=== PATIENT | male | born 1975 | race Caucasian/White ===

== ENCOUNTER 2018-12-08 07:45 | Emergency (ER) | payer BC ==
[2018-12-08 08:17] LABS: INR 0.94 (0.82-1.09)
[2018-12-08 08:20] LABS: ABS Basophils 0.1 10^3/ul (0-0.2); ABS Eosinophils 0.1 10^3/ul (0-0.6); ABS Lymphocytes 1.3 10^3/ul (1.0-4.8); ABS Monocytes 0.7 10^3/ul (0-0.8); ABS Neutrophils 6.7 10^3/ul (1.5-7.7); Eosinophil % 1.4 %; Hematocrit 41 % (42-52); Hemoglobin 14.2 g/dL (14.0-18.0); Lymphocyte % 14.1 %; Mean Corpuscular HGB Conc 34 g/dL (31-36); Mean Corpuscular Hemoglobin 29 pg (27-31); Mean Corpuscular Volume 85 fL (80-94); Mean Platelet Volume 6.6 fL (7.4-10.4); Platelet Count 308 10^3/uL (150-450); Red Blood Count 4.86 10^6 /uL (4.18-5.48); Red Cell Distribution Width 14 % (10-15); White Blood Count 8.9 10^3/uL (3.5-10.8)
--- NOTE | 2018-12-08 08:26 | ED ---
HPI Chest Pain - HPI Summary HPI Summary: Pt is a 43 y/o M presenting to the ED with a chief complaint of chest pain initially onset about 1 hour [employer] located in the lower sternal/epigastric region. He woke up with nausea around 0300, went on a hike at 0400 and after about 4 miles, he experienced chest pain. He began to dry heave and burp, which temporarily alleviated the pain, but he reports associated SOB. He denies PMHx, and states he felt fine going to sleep last night. - History of Current Complaint Chief Complaint: EDChestPainROMI Time Seen by Provider: 12/08/18 08:02 Hx Obtained From: Patient Onset/Duration: Started Hours Ago, Still Present Timing: Constant, Lasting Hours Initial Severity: Moderate Current Severity: Mild Pain Intensity: 3 Pain Scale Used: 0-10 Numeric Chest Pain Location: Lower Sternal Chest Pain Radiates: No Aggravating Factor(s): Nothing Alleviating Factor(s): Other: - dry heaving/burping Associated Signs and Symptoms: Positive: Chest Pain, Shortness of Breath, Nausea , Vomiting - dry heaving/burping - Allergy/Home Medications Allergies/Adverse Reactions: Allergies Allergy/AdvReac Type Severity Reaction Status Date / Time No Known Allergies Allergy Verified 12/08/18 07:52 PMH/Surg Hx/FS Hx/Imm Hx Previously Healthy: Yes Endocrine/Hematology History: Denies: Hx Diabetes Cardiovascular History: Denies: Hx Hypertension Infectious Disease History: No Infectious Disease History: Denies: Traveled Outside the [place] in Last 30 Days - Family History Known Family History: Positive: Hypertension - paternal, Diabetes - "blood sugar issues" paternally - Social History Alcohol Use: Occasionally Hx Substance Use: No Substance Use Type: Reports: None Hx Tobacco Use: No Smoking Status (MU): Never Smoked Tobacco Review of Systems Positive: Chest Pain Positive: Shortness Of Breath Positive: Vomiting, Nausea All Other Systems Reviewed And Are Negative: Yes Physical Exam - Summary Physical Exam Summary: Appearance: The patient is well-nourished in no acute distress and in no acute pain. Skin: The skin is warm and dry and skin color reflects adequate perfusion. HEENT: The head is normocephalic and atraumatic. The pupils are equal and reactive. The conjunctivae are clear and without drainage. Nares are patent and without drainage. Mouth reveals moist mucous membranes and the throat is without erythema and exudate. The external ears are intact. The ear canals are patent and without drainage. The tympanic membranes are intact. Neck: The neck is supple with full range of motion and non-tender. There are no carotid bruits. There is no neck vein distension. Respiratory: Chest is non-tender. Lungs are clear to auscultation and breath sounds are symmetrical and equal. Cardiovascular: Heart is regular rate and rhythm. There is no murmur or rub auscultated. There is no peripheral edema and pulses are symmetrical and equal. Abdomen: The abdomen is soft and non-tender. There are normal bowel sounds heard in all four quadrants and there is no organomegaly palpated. Musculoskeletal: There is no back tenderness noted. Extremities are non-tender with full range of motion. There is good capillary refill. There is no peripheral edema or calf tenderness elicited. Neurological: Patient is alert and oriented to person, place and time. The patient has symmetrical motor strength in all four extremities. Cranial nerves are grossly intact. Deep tendon reflexes are symmetrical and equal in all four extremities. Psychiatric: The patient has an appropriate affect and does not exhibit any anxiety or depression Triage Information Reviewed: Yes Vital Signs On Initial Exam: Initial Vitals Temp Pulse Resp BP Pulse Ox 97.6 F 100 15 119/83 94 12/08/18 07:50 12/08/18 07:50 12/08/18 07:50 12/08/18 07:50 12/08/18 07:50 Vital Signs Reviewed: Yes Diagnostics - Vital Signs Vital Signs Temp Pulse Resp BP Pulse Ox 12/08/18 07:50 97.6 F 100 15 119/83 94 - Laboratory Lab Results: Lab Results 12/08/18 12/08/18 Range/Units 08:04 08:04 WBC 8.9 (3.5-10.8) 10^3/uL RBC 4.86 (4.18-5.48) 10^6 /uL Hgb 14.2 (14.0-18.0) g/dL Hct 41 L (42-52) % MCV 85 (80-94) fL MCH 29 (27-31) pg MCHC 34 (31-36) g/dL RDW 14 (10-15) % Plt Count 308 (150-450) 10^3/uL MPV 6.6 L (7.4-10.4) fL Neut % (Auto) 75.6 % Lymph % (Auto) 14.1 % [place] % (Auto) 7.9 % Eos % (Auto) 1.4 % Baso % (Auto) 1.0 % Absolute Neuts (auto) 6.7 (1.5-7.7) 10^3/ul Absolute Lymphs (auto) 1.3 (1.0-4.8) 10^3/ul Absolute Monos (auto) 0.7 (0-0.8) 10^3/ul Absolute Eos (auto) 0.1 (0-0.6) 10^3/ul Absolute Basos (auto) 0.1 (0-0.2) 10^3/ul Absolute Nucleated RBC 0.0 10^3/ul Nucleated RBC % 0.0 INR (Anticoag Therapy) 0.94 (0.82-1.09) Result Diagrams: 12/08/18 08:04 12/08/18 08:04 Lab Statement: Any lab studies that have been ordered have been reviewed, and results considered in the medical decision making process. - Radiology CXR Radiology Interpretation Completed By: Radiologist Summary of Radiographic Findings: No acute cardiopulmonary process by radiograph. ED physician has reviewed this report. - EKG 0746 Cardiac Rate: NL - 91bpm EKG Rhythm: Sinus Rhythm ST Segment: Normal Ectopy: None Summary of EKG Findings: EKG at 0746 shows NSR at 91bpm with normal ST, no ectopy, no STEMI. Chest Pain Course/Dx - Course Course Of Treatment: Mr. Meier woke up this morning about 4 AM feeling nauseated. He was due to get out of bed at 0445 for a hike for the [employer] and did so. He felt good hiking for about 4 miles and then got nauseated again and vomited several times. He then began to complain of chest pain which would be temporarily resolved by burping. He feels better on arrival here but still has a uncomfortable full feeling and points to his lower sternum. He was nontoxic in appearance with stable vitals. He was kept on a monitor while labs including a delayed troponin were obtained and normal. He did have a very slightly elevated d-dimer but essentially no risk factors for PE. He felt improved and I gave him a prescription for Zofran and encouragement to follow-up with his PCP. - Diagnoses Provider Diagnoses: Vomiting Discharge - Sign-Out/Discharge Documenting (check all that apply): Patient Departure Patient Received Moderate/Deep Sedation with Procedure: No - Discharge Plan Condition: Stable Disposition: HOME Prescriptions: Ondansetron ODT TAB* [Zofran Odt TAB*] 4 mg PO Q6H PRN #20 tab.odt PRN Reason: Nausea/Vomiting Referrals: [facility] [Outside] Additional Instructions: Please follow up with your primary care provider within the next 2-3 days. Return to the emergency department with any new or worsening symptoms. - Billing Disposition and Condition Condition: STABLE Disposition: Home - Attestation Statements Document Initiated by Scribe: Yes Documenting Scribe: Stephanie Henriquez Provider For Whom Chris is Documenting (Include Credential): Harpal Huston MD. Scribe Attestation: Stephanie Arce scribed for Harpal Huston MD. on 12/08/18 at 1418. Scribe Documentation Reviewed: Yes Provider Attestation: The documentation as recorded by the susanaibStephanie dasilva accurately reflects the service I personally performed and the decisions made by , Harpal Huston MD. Status of Scribe Document: Viewed
[2018-12-08 08:31] LABS: Albumin 4.6 g/dL (3.2-5.2); Albumin/Globulin Ratio 1.8 (1-3); BUN/Creatinine Ratio 21.4 (8-20); Calcium 9.2 mg/dL (8.6-10.3); EGFR African American 96.3 (>60); EGFR Non-African American 79.6 (>60); Globulin 2.6 g/dL (2-4); Potassium 4.2 mmol/L (3.5-5.0); Total Bilirubin 0.5 mg/dL (0.2-1.0); Total Protein 7.2 g/dL (6.4-8.9)
[2018-12-08 08:32] LABS: Troponin I 0.01 ng/mL (<0.04)
[2018-12-08] MEDS ORDERED: Sucralfate TAB* 1 GM PO ONE (08:32)
[2018-12-08 10:48] VITALS: BP 123/67
== END 2018-12-08 13:16 | disposition home or self-care (01) ==
LOC: ED 07:45
DX: R11.10 Vomiting, unspecified (principal)
CPT/HCPCS: 36415; 71046; 80053; 84484; 85025; 85379; 85610; 93005; 99283; A9270-GY